=== PATIENT | male | born 1970 | race Caucasian/White ===

== ENCOUNTER 2019-04-14 14:10 | Emergency (ER) | payer MEDICAID ==
[~2019-04-14] VITALS: Ht 170.2 cm; Wt 36.4 kg
[2019-04-14 14:21] VITALS: BP 138/93
[2019-04-14] MEDS ORDERED: HYDR28CR14 TOP (15:37)
== END 2019-04-14 15:56 | disposition home or self-care (01) ==
LOC: ER 14:11
DX: L30.9 Dermatitis, unspecified (principal); J06.9 Acute upper respiratory infection, unspecified; F17.200 Nicotine dependence, unspecified, uncomplicated; F41.9 Anxiety disorder, unspecified; F15.90 Other stimulant use, unspecified, uncomplicated; F10.99 Alcohol use, unspecified with unspecified alcohol-induced disorder; M79.7 Fibromyalgia; Z88.0 Allergy status to penicillin; Z79.899 Other long term (current) drug therapy; Y90.9 Presence of alcohol in blood, level not specified
CPT/HCPCS: 99282

== ENCOUNTER → 2019-08-16 14:20 | Emergency (ER) | payer MEDICAID, OTHER ==
[~2019-08-16] VITALS: Ht 170.2 cm; Wt 64.0 kg
[~2019-08-16 14:20] MED LIST: HYDR28CR14 TOP
== END | disposition home or self-care (01) ==
LOC: ER 14:20
DX: S60.456A Superficial foreign body of right little finger, initial encounter (principal); F17.200 Nicotine dependence, unspecified, uncomplicated; F15.90 Other stimulant use, unspecified, uncomplicated; J06.9 Acute upper respiratory infection, unspecified; Z72.89 Other problems related to lifestyle; Z88.0 Allergy status to penicillin; Z79.899 Other long term (current) drug therapy; X58.XXXA Exposure to other specified factors, initial encounter; Y93.89 Activity, other specified; Y92.89 Other specified places as the place of occurrence of the external cause; Y99.8 Other external cause status
CPT/HCPCS: 99284

== ENCOUNTER 2019-08-22 05:53 | Emergency (ER) | payer MEDICAID, OTHER ==
[~2019-08-22] VITALS: Ht 170.2 cm; Wt 70.0 kg
[2019-08-22 08:10] VITALS: BP 118/82
--- NOTE | 2019-08-22 08:57 | NUR ---
SANDWICH AND JUICE PROVIDED, PER EDMD "TX"
== END 2019-08-22 09:05 | disposition home or self-care (01) ==
LOC: ER 05:54
DX: R40.0 Somnolence (principal); R53.83 Other fatigue; F15.90 Other stimulant use, unspecified, uncomplicated; Z72.89 Other problems related to lifestyle; Z88.0 Allergy status to penicillin; Z79.899 Other long term (current) drug therapy
CPT/HCPCS: 99283

== ENCOUNTER 2025-01-05 15:15 | Emergency (ER) | payer MEDICAID ==
[~2025-01-05] VITALS: Ht 170.2 cm; Wt 62.0 kg
[2025-01-05 15:21] VITALS: BP 139/94; PULSE 114; RESP 16; TEMP 98; O2SAT 99
--- NOTE | 2025-01-05 16:11 | Physician Documentation ---
History of Present Illness ~ Chief Complaint: Medical Clearance Stated Complaint: DOC NOTE FOR MRSA Time Seen by MD: 15:35 Primary Medical Doctor: none HPI Patient is seen today with complaints for med clearance for drug rehab. Patient states he got MRSA on his fingers a while back and was just started on antibiotics a few days ago. Patient states they are doing quite a bit better. Patient denies any chest pain or shortness of breath or abdominal pain or nausea, vomiting, diarrhea. Patient has no other concern or complaint at this time. Tetanus within 5 years?: No Medication Reconciliation Allergies: Coded Allergies: Penicillins (Verified Adverse Reaction, Unknown, GI PROBLEMS, 01/05/25) Scheduled Hydrocortisone (hydrocortisone 1% cream), 1 APPLIC TOP Q12H Past Medical History Past Medical History: No Pertinent History, Anxiety Past Surgical History: noncontributory Alcohol Use: Heavy Drug Use: methamphetamine Lives In: Home Review of Systems Constitutional: Denies: chills, fever, weakness Eyes: Denies: pain, blurred vision ENT: Denies: ear pain, nose pain, throat pain, mouth pain Respiratory: Denies: cough, shortness of breath Cardiovascular: Denies: chest pain, palpitations Gastrointestinal: Denies: abdominal pain, nausea, vomiting Genitourinary: Denies: burning, dysuria Male Genitalia: Denies: penile discharge, testicular pain Neurological: Denies: headache, dizziness Musculoskeletal: Denies: pain, swelling Integumentary: Denies: rash, lesions Allergic/Immunologic: Denies: hives, itching Hematologic/Lymphatic: Denies: no symptoms reported Psychiatric: Denies: depression, anxiety Physical Exam Vital Signs: Temperature: 98.0, Source: Temporal, Heart Rate: 114, Respiratory Rate: 16, BP: 139/94, Pulse Oximetry: 99, Weight: 61.950 Oxygen Flow Rate: 0 Physical Exam General: Awake and Alert, no acute distress. HEENT: Conjunctiva pink, Sclera clear, Mucus Membranes moist. Neck: Supple without masses and tenderness. Resp: Unlabored. Lungs clear to auscultation bilaterally. Heart: Regular Rate and rhythm, normal S1 and S2 without murmur, rub or gallop. Musculoskeletal: Patient on exam does have what appears to be nearly completely resolved infection of the index and long finger of the left hand. Patient is neurovascularly intact distally and motor function intact distally. Extremities: No cyanosis,clubbing or edema. Skin: Warm and Dry. Progress Results/Orders Results/Orders Vital Signs 01/05/25 15:21 Temp 98.0 Pulse 114 Resp 16 B/P (MAP) 139/94 Pulse Ox 99 O2 Flow Rate 0 Medical Decision Making Findings Patient is seen today with complaints for med clearance for drug rehab. Patient states he got MRSA on his fingers a while back and was just started on antibiotics a few days ago. Patient states they are doing quite a bit better. Patient denies any chest pain or shortness of breath or abdominal pain or nausea, vomiting, diarrhea. Patient has no other concern or complaint at this time. Patient is medically cleared regarding the infection of his hand as well as medically cleared for detox. Patient will return to ED with any worsening, concerning or changing symptoms. Patient will finish out the antibiotic course that he is on. Departure Disposition: HOME / SELF CARE / HOMELESS Impression: Primary Impression: Polysubstance abuse Additional Impressions: General medical exam Finger infection Condition: Improved Discharge Instructions: Medical Screening Exam Additional Instructions: Patient is medically cleared regarding the infection of his hand as well as medically cleared for detox. Patient will return to ED with any worsening, concerning or changing symptoms. Patient will finish out the antibiotic course that he is on. Referrals: NO PRIMARY CARE PROVIDER (PCP) Signature Scribe Signature: No scribe Attestation: No scribe JANELL GUPTA PAC Jan 05, 2025 16:11
== END 2025-01-05 16:35 | disposition home or self-care (01) ==
LOC: ER 15:16
DX: F19.10 Other psychoactive substance abuse, uncomplicated (principal); L08.9 Local infection of the skin and subcutaneous tissue, unspecified; F41.9 Anxiety disorder, unspecified; Z88.0 Allergy status to penicillin; Z79.899 Other long term (current) drug therapy
CPT/HCPCS: 99282

== ENCOUNTER 2025-01-26 10:59 | Emergency (ER) | payer MEDICAID ==
[~2025-01-26] VITALS: Ht 170.2 cm; Wt 66.0 kg
[2025-01-26 11:06] VITALS: BP 119/83; PULSE 92; RESP 16; TEMP 97.7; O2SAT 98
--- NOTE | 2025-01-26 12:03 | Physician Documentation ---
History of Present Illness ~ Chief Complaint: Wound Stated Complaint: STAPH Time Seen by MD: 11:08 Primary Medical Doctor: none Tetanus within 5 years?: No Medication Reconciliation Allergies: Coded Allergies: Penicillins (Verified Adverse Reaction, Unknown, GI PROBLEMS, 01/05/25) Scheduled Hydrocortisone (hydrocortisone 1% cream), 1 APPLIC TOP Q12H Past Medical History Past Medical History: No Pertinent History, Anxiety Past Surgical History: noncontributory Alcohol Use: Heavy Drug Use: methamphetamine Lives In: Home Physical Exam Vital Signs: Temperature: 97.7, Heart Rate: 92, Respiratory Rate: 16, BP: 119/83, Pulse Oximetry: 98, Weight: 66.000 Oxygen Flow Rate: 0 Progress Results/Orders Results/Orders Vital Signs 01/26/25 11:06 Temp 97.7 Pulse 92 Resp 16 B/P (MAP) 119/83 Pulse Ox 98 O2 Flow Rate 0 Departure Referrals: NO PRIMARY CARE PROVIDER (PCP) CASANDRA SCOTT NP Jan 26, 2025 12:03
== END 2025-01-26 13:50 | disposition left against medical advice (07) ==
LOC: ER 11:00
DX: S90.921A Unspecified superficial injury of right foot, initial encounter (principal); Z88.0 Allergy status to penicillin; Z53.21 Procedure and treatment not carried out due to patient leaving prior to being seen by health care provider; X58.XXXA Exposure to other specified factors, initial encounter; Y93.89 Activity, other specified; Y92.89 Other specified places as the place of occurrence of the external cause; Y99.8 Other external cause status

== ENCOUNTER 2025-02-06 12:57 | Emergency (ER) | payer MEDICAID ==
[~2025-02-06] VITALS: Ht 170.2 cm; Wt 66.5 kg
[2025-02-06 13:15] VITALS: BP 131/86; PULSE 87; RESP 18; TEMP 97.5; O2SAT 98
--- NOTE | 2025-02-06 13:51 | Physician Documentation ---
HPI ~ General Chief Complaint: Medication Request Stated Complaint: MED REQUEST Time Seen by MD: 13:26 Primary Medical Doctor: none History of Present Illness HPI Comments This is a 55-year-old with a history of fentanyl abuse who presents requesting assistance with medication assisted therapy for rehabilitation from fentanyl abuse, patient has entered a residential treatment facility though is awaiting an appointment with a MAT clinic. Patient's last use the fentanyl was three da ys prior. Patient reports body aches, diarrhea, and nausea without vomiting. Patient reports no other acute symptoms or concerns. Medication Reconciliation Allergies: Coded Allergies: Penicillins (Verified Adverse Reaction, Unknown, GI PROBLEMS, 02/06/25) Scheduled Buprenorphine Hcl/Naloxone Hcl (Suboxone 8 Mg-2 Mg Sl Film), 1 STRIP SL BID Hydrocortisone (hydrocortisone 1% cream), 1 APPLIC TOP Q12H Past Medical History Past Medical History: No Pertinent History, Anxiety Past Surgical History: noncontributory Alcohol Use: Heavy Drug Use: methamphetamine Lives In: Home Review of Systems ROS As stated above in the HPI, otherwise all systems are reviewed and negative. Physical Exam Physical Exam Vital Signs: Temperature: 97.5, Source: Oral, Heart Rate: 87, Respiratory Rate: 18, BP: 131/86, Pulse Oximetry: 98, Weight: 66.500 Oxygen Flow Rate: 0 Physical Exam VITALS: Reviewed and as above. GENERAL: Alert, nontoxic appearing, no apparent distress. RESPIRATORY: No increased work of breathing, no respiratory distress, speaking in full clear sentences Progress Results/Orders Results/Orders Orders - JOAO SANDOVAL Substance Use Navigator (02/06/25 14:07) Vital Signs 02/06/25 13:15 Temp 97.5 Pulse 87 Resp 18 B/P (MAP) 131/86 Pulse Ox 98 O2 Flow Rate 0 Medical Decision Making Findings This 55-year-old male presented requesting Suboxone for medication assisted therapy for rehab from fentanyl abuse, patient does have an appointment with MAT Clinic and three days, as patient is in a treatment program he has not use fentanyl in three days and is appropriate to start Suboxone, a referral was made to substance use navigator and patient prescribed four day course of Suboxone until he can get any with his clinic appointment. This is a describes symptoms consistent with early opioid withdrawal. Patient is otherwise well without other physical concerns this is appropriate for discharge and follow up with the primary care and MAT clinic. Differential Dx:Considerations: Include: Economic, Psychosocial, Medical services unavail., Other (Opiate withdrawal, opioid dependence, substance use disorder) Departure Time of Disposition: 14:25 Disposition: 01 HOME / SELF CARE / HOMELESS Impression: Primary Impression: Substance use disorder Additional Impression: Opioid use disorder Condition: Improved Discharge Instructions: Opioid Withdrawal Additional Instructions: Please follow up with the MAT Clinic and your primary care provider. Our substance use navigator may reach out to you with the additional community resources. Please take the medication as prescribed. Please follow up with yo primary care provider in the next few days. Please return to the emergency department for any new or worsening concerning symptoms. You have been prescribed an opioid medication, there are risks of addiction and overdose associated with the use of opioids. The risk of addiction to an opioid for increases for those suffering both from mental health and substance use disorders. The use of an opioid while taking other central nervous system depressants including but not limited to benzodiazepines or alcohol, or other opioids increases the risk of serious side effects that can include overdose or respiratory depression that can lead to serious injury or . Referrals: NO PRIMARY CARE PROVIDER (PCP) Prescriptions Buprenorphine Hcl/Naloxone Hcl (Suboxone 8 Mg-2 Mg Sl Film) 8 Mg-2 Mg Film 1 STRIP SL BID for 4 Days, #8 STRIP Prov: JOAO SANDOVAL 02/06/25 Education Educated: Patient Educated regarding: diagnosis, treatment, prognosis, need for follow up Signature Scribe Signature: No scribe Attestation: The note accurately reflects work and decisions made by me.NABIL Sawant 02/08/25 19:41 JOAO SANDOVAL Feb 06, 2025 13:51
[2025-02-06] MEDS ORDERED: BUPR1FIL3 SL (14:16)
== END 2025-02-06 15:01 | disposition home or self-care (01) ==
LOC: ER 12:58
DX: F11.90 Opioid use, unspecified, uncomplicated (principal); F15.90 Other stimulant use, unspecified, uncomplicated; F10.90 Alcohol use, unspecified, uncomplicated; R19.7 Diarrhea, unspecified; R11.0 Nausea; Z88.0 Allergy status to penicillin; Z76.0 Encounter for issue of repeat prescription; Z79.899 Other long term (current) drug therapy; Y90.9 Presence of alcohol in blood, level not specified
CPT/HCPCS: 99281